=== PATIENT | male | born 1975 | race Two or more races ===

== ENCOUNTER 2024-12-09 06:44 | Day surgery (SDC) | payer OTHER ==
[~2024-12-09] VITALS: Ht 180.3 cm; Wt 117.5 kg
[~2024-12-09 06:44] MED LIST: DOXY100 PO; FEXO180 PO; LISI5 PO; Lidocaine 1%-Epineph 1:100000 20 ML MDV ONE; NS 500 ML IV ONE; Sodium Bicarb 8.4% 1 MEQ/ML 50 ML Vial ONE; [UNRECOGNIZED DRUG - REMARK]; [UNRECOGNIZED DRUG - REMARK]; [UNRECOGNIZED DRUG - REMARK]
[2024-12-09] MEDS ORDERED: NS 500 ML IV ONE (07:14)
[2024-12-09] MEDS ORDERED: CeFAZolin Sodium 2,000 MG VIAL ONE (07:19)
[2024-12-09] MEDS ORDERED: NS 100 ML IV ONE (07:19)
[2024-12-09] MEDS ORDERED: LISI20 (07:24)
[2024-12-09] MEDS ORDERED: Budeprion Xl300 MG (07:24)
[2024-12-09] MEDS ORDERED: PRAZ2 (07:24)
[2024-12-09] MEDS ORDERED: SERT100 (07:24)
[2024-12-09] MEDS ORDERED: Zanaflex2 M1 (07:27)
[2024-12-09] MEDS ORDERED: BUPRENORPHINE HC8 MG (07:27)
[2024-12-09] MEDS ORDERED: ZEPBOUND5 MG/0.51 (07:28)
--- NOTE | 2024-12-09 07:35 | NUR ---
12/09/24 0735 [place] BLOCK IN REOP OF RIGHT HAND T/0 AT 0729 START AT 0730 TOTAL 9ML PT TOLERATED WELL
[2024-12-09] MEDS ORDERED: Midazolam HCl 1MG / ML 2ML Vial ONE (08:07)
[2024-12-09] MEDS ORDERED: Ketorolac Tromethamine 30mg Vial ONE (08:20)
[2024-12-09 08:39] VITALS: BP 114/63
--- NOTE | 2024-12-09 08:54 | NUR ---
12/09/24 0854 Zhanna Lantigua APNEA W DROWSINESS UPON ARRIVAL TO STEPDOWN FROM OR. RESOLVED UPON DC, VSS EDU PROVIDED TO ABOUT USING CPAP IF NAPPING TODAY
== END 2024-12-09 08:54 | disposition home or self-care (01) ==
LOC: ORSCSDS 06:44
PROVIDERS: Orthopaedic Surgery
PROC: 0JBG0ZX Excision of Right Lower Arm Subcutaneous Tissue and Fascia, Open Approach, Diagnostic (ICD-10-PCS; principal; 2024-12-09 08:15)
PROC: 01N54ZZ Release Median Nerve, Percutaneous Endoscopic Approach (ICD-10-PCS; principal; 2024-12-09 08:15)
DX: G56.03 Carpal tunnel syndrome, bilateral upper limbs (principal); F32.A Depression, unspecified; I10 Essential (primary) hypertension; G47.33 Obstructive sleep apnea (adult) (pediatric); Z87.891 Personal history of nicotine dependence; Z79.899 Other long term (current) drug therapy
CPT/HCPCS: 88305; 88313; J0690; J1885; J2250; J2704; J7040

== ENCOUNTER 2025-03-17 06:09 | Day surgery (SDC) | payer OTHER ==
[~2025-03-17] VITALS: Ht 180.3 cm; Wt 117.0 kg
[~2025-03-17 06:09] MED LIST changes: +BUPRENORPHINE HC8 MG; +Budeprion Xl300 MG; +LISI20; -Lidocaine 1%-Epineph 1:100000 20 ML MDV ONE; -NS 500 ML IV ONE; +PRAZ2; +SERT100; -Sodium Bicarb 8.4% 1 MEQ/ML 50 ML Vial ONE; +ZEPBOUND5 MG/0.51; +Zanaflex2 M1
[2025-03-17] MEDS ORDERED: NS 500 ML IV ONE ×2 (06:19→06:55)
[2025-03-17] MEDS ORDERED: Sodium Bicarb 8.4% 1 MEQ/ML 50 ML Vial ONE (06:19)
[2025-03-17] MEDS ORDERED: Lidocaine 1%-Epineph 1:100000 20 ML MDV ONE (06:21)
[2025-03-17] MEDS ORDERED: CeFAZolin Sodium 2,000 MG VIAL ONE (06:21)
[2025-03-17] MEDS ORDERED: PREG100 (06:44)
[2025-03-17] MEDS ORDERED: HYDHCL25 (06:45)
[2025-03-17] MEDS ORDERED: FentaNYL Citrate 50 MCG/ML 2 ML Injection ONE (07:04)
[2025-03-17] MEDS ORDERED: Ketorolac Tromethamine 30mg Vial ONE (07:29)
[2025-03-17] MEDS ORDERED: Ondansetron HCl 2 MG / ML 2ML Vial ONE (07:29)
[2025-03-17 08:16] VITALS: BP 121/65
== END 2025-03-17 08:14 | disposition home or self-care (01) ==
LOC: ORSCSDS 06:09
PROVIDERS: Orthopaedic Surgery
PROC: 01N54ZZ Release Median Nerve, Percutaneous Endoscopic Approach (ICD-10-PCS; principal; 2025-03-17 07:30)
DX: G56.02 Carpal tunnel syndrome, left upper limb (principal); I10 Essential (primary) hypertension; N40.0 Benign prostatic hyperplasia without lower urinary tract symptoms; G47.33 Obstructive sleep apnea (adult) (pediatric); Z68.36 Body mass index [BMI] 36.0-36.9, adult; Z79.899 Other long term (current) drug therapy
CPT/HCPCS: J0690; J1885; J2405; J2704; J3010; J7040